=== PATIENT | female | born 1940 | race African-American/Black ===

== ENCOUNTER 2018-11-14 16:38 | Inpatient (IN) | payer MEDICARE, MEDICAID ==
[~2018-11-14] VITALS: Ht 170.2 cm; Wt 62.4 kg
[~2018-11-14 16:38] MED LIST: AMLO5TAB88 PO; ASPI-1159 PO; MEMA1CAP PO
[2018-11-14] MEDS ORDERED: SODIUM CHLORIDE 0.9% 1,000 ML IV ONE ×2 (19:25→21:45)
[2018-11-14] MEDS ORDERED: CLONIDINE 0.2MG TABLET PO ONE (19:30)
[2018-11-14 19:49] LABS: BASOPHILS % 1.3 % (0.0-2.0); EOSINOPHILS % 2.9 % (0.0-5.0); HEMATOCRIT. 34.1 % (36.0-48.0); HEMOGLOBIN. 11.1 g/dL (12.0-16.0); LYMPHOCYTES % 31.6 % (20.0-50.0); MEAN CORPUSCULAR HEMOGLOBIN 27.4 pg (28.0-32.0); MEAN CORPUSCULAR VOLUME 84.4 fL (81.0-99.0); MEAN PLATELET VOLUME 8.1 fl (7.4-10.4); MONOCYTES % 8.3 % (2.0-8.0); NEUTROPHILS % 55.9 % (40.0-76.0); PLATELET 221 x1000/uL (130-400); RED BLOOD CELL COUNT 4.04 mill/uL (4.2-5.4); RED CELL DISTRIBUTION WIDTH 13.9 % (11.6-14.6)
[2018-11-14 19:54] LABS: CHLORIDE 108 mEq/L (98-107)
[2018-11-14 19:56] LABS: INR 1.1; PROTHROMBIN TIME 11.3 sec (9.6-11.0)
[2018-11-14 20:02] LABS: CREATINE KINASE 117 IU/L (26-192)
[2018-11-14] MEDS ORDERED: HALOPERIDOL LACTATE 5MG/ML VIAL IM ONE (21:00)
[2018-11-14] MEDS ORDERED: HYDRALAZINE 20MG/ML VIAL IV NR (22:15)
[2018-11-14 22:42] LABS: CLARITY URINE CLEAR (CLEAR); COLOR URINE YELLOW (YELLOW); KETONES URINE NEGATIVE (NEGATIVE); LEUKOCYTE ESTERASE URINE NEGATIVE (NEGATIVE); NITRITE URINE NEGATIVE (NEGATIVE); OCCULT BLOOD URINE NEGATIVE (NEGATIVE); PROTEIN URINE NEGATIVE (NEGATIVE); SPECIFIC GRAVITY URINE 1.009 (1.005-1.030); UROBILINOGEN URINE 0.2 E.U./dL (0.2-1.0)
[2018-11-14] MEDS ORDERED: DOPAMINE 400MG/250ML PREMIX 250 ML IV ONE (22:45)
[2018-11-14] MEDS ORDERED: ATROPINE SULFATE 1MG/ML VIAL IV ONE (22:45)
[2018-11-14] MEDS ORDERED: ATROPINE SULFATE 1MG/10ML SYR IV NR (22:45)
[2018-11-15] VITALS (11 sets, daily range): BP systolic 109–165; BP diastolic 58–92
[2018-11-15] MEDS ORDERED: LINA290C PO (05:12)
[2018-11-15] MEDS ORDERED: MIRT7.5T11 PO (05:12)
[2018-11-15] MEDS ORDERED: GALA24CA PO (05:12)
[2018-11-15 08:45] LABS: CHLORIDE 115 mEq/L (98-107)
[2018-11-15] MEDS: MEMANTINE HCL 10MG TABLET PO SCH (08:53)
[2018-11-15] MEDS: ASPIRIN 81MG TABLET PO SCH (08:53)
[2018-11-15 08:56] LABS: EOSINOPHILS % 2.4 % (0.0-5.0); HEMATOCRIT. 27.4 % (36.0-48.0); LYMPHOCYTES % 20.7 % (20.0-50.0); MEAN CORPUSCULAR HEMOGLOBIN 27.8 pg (28.0-32.0); MEAN CORPUSCULAR VOLUME 84.6 fL (81.0-99.0); MEAN PLATELET VOLUME 8.4 fl (7.4-10.4); MONOCYTES % 8.5 % (2.0-8.0); NEUTROPHILS % 67.4 % (40.0-76.0); PLATELET 182 x1000/uL (130-400); RED BLOOD CELL COUNT 3.23 mill/uL (4.2-5.4); RED CELL DISTRIBUTION WIDTH 13.6 % (11.6-14.6)
[2018-11-15] MEDS: AMLODIPINE 5MG TABLET PO SCH (08:56)
[2018-11-15] MEDS ORDERED: ENOXAPARIN 40MG/0.4ML SYR SUBCUT SCH (09:00)
[2018-11-15] MEDS ORDERED: ENOXAPARIN 40MG/0.4ML SYR SUBCUT ONE (09:45)
[2018-11-15] MEDS: DEXT 5%/0.45% NACL KCL 40MEQ/L 1,000 ML IV SCH (12:14)
[2018-11-15] MEDS: MIRTAZAPINE 15MG TABLET PO SCH (21:18)
[2018-11-16] VITALS (12 sets, daily range): BP systolic 120–168; BP diastolic 67–111
[2018-11-16] MEDS: DEXT 5%/0.45% NACL KCL 40MEQ/L 1,000 ML IV SCH ×2 (00:05→12:35)
[2018-11-16 06:17] LABS: CHLORIDE 111 mEq/L (98-107)
[2018-11-16 07:10] LABS: BASOPHILS % 0.6 % (0.0-2.0); EOSINOPHILS % 0.8 % (0.0-5.0); LYMPHOCYTES % 11.4 % (20.0-50.0); MEAN CORPUSCULAR HEMOGLOBIN 27.6 pg (28.0-32.0); MEAN CORPUSCULAR VOLUME 84.3 fL (81.0-99.0); MEAN PLATELET VOLUME 8.6 fl (7.4-10.4); MONOCYTES % 7.4 % (2.0-8.0); NEUTROPHILS % 79.8 % (40.0-76.0); PLATELET 214 x1000/uL (130-400); RED BLOOD CELL COUNT 3.82 mill/uL (4.2-5.4); RED CELL DISTRIBUTION WIDTH 13.3 % (11.6-14.6)
[2018-11-16 07:14] LABS: HEMATOCRIT. 32.2 % (36.0-48.0); HEMOGLOBIN. 10.5 g/dL (12.0-16.0)
[2018-11-16] MEDS: DOCUSATE SODIUM 250MG CAPSULE PO SCH (08:44)
[2018-11-16] MEDS: ASPIRIN 81MG TABLET PO SCH (08:44)
[2018-11-16] MEDS: MEMANTINE HCL 10MG TABLET PO SCH (08:44)
[2018-11-16] MEDS: ENOXAPARIN 40MG/0.4ML SYR SUBCUT SCH (08:44)
[2018-11-16] MEDS: MULTIVITAMINS,THER W-MINERALS TABLET PO SCH (08:44)
[2018-11-16] MEDS: ATORVASTATIN CALCIUM 10MG TABLET PO SCH (08:44)
[2018-11-16] MEDS: AMLODIPINE 5MG TABLET PO SCH (08:45)
[2018-11-16] MEDS ORDERED: AMLODIPINE 5MG TABLET PO SCH (09:00)
[2018-11-16] MEDS: LINZESS 290 MCG PO SCH ×2 (11:00→12:34)
[2018-11-16] MEDS ORDERED: ACETAMINOPHEN 650MG/20.3ML UDC PO PRN (16:00)
[2018-11-16] MEDS: MIRTAZAPINE 15MG TABLET PO SCH (21:20)
[2018-11-17] VITALS (7 sets, daily range): BP systolic 108–140; BP diastolic 56–75
[2018-11-17] MEDS: DEXT 5%/0.45% NACL KCL 40MEQ/L 1,000 ML IV SCH (02:11)
[2018-11-17 06:46] LABS: BASOPHILS % 0.8 % (0.0-2.0); EOSINOPHILS % 2.8 % (0.0-5.0); HEMATOCRIT. 29.8 % (36.0-48.0); HEMOGLOBIN. 9.9 g/dL (12.0-16.0); LYMPHOCYTES % 11.4 % (20.0-50.0); MEAN CORPUSCULAR HEMOGLOBIN 28.1 pg (28.0-32.0); MEAN CORPUSCULAR VOLUME 84.7 fL (81.0-99.0); MEAN PLATELET VOLUME 8.5 fl (7.4-10.4); PLATELET 195 x1000/uL (130-400); RED BLOOD CELL COUNT 3.52 mill/uL (4.2-5.4); RED CELL DISTRIBUTION WIDTH 13.4 % (11.6-14.6)
[2018-11-17 06:58] LABS: CHLORIDE 112 mEq/L (98-107)
[2018-11-17] MEDS: MULTIVITAMINS,THER W-MINERALS TABLET PO SCH (08:09)
[2018-11-17] MEDS: ATORVASTATIN CALCIUM 10MG TABLET PO SCH (08:09)
[2018-11-17] MEDS: ASPIRIN 81MG TABLET PO SCH (08:09)
[2018-11-17] MEDS: MEMANTINE HCL 10MG TABLET PO SCH ×2 (08:09→08:17)
[2018-11-17] MEDS: LINZESS 290 MCG PO SCH (08:09)
[2018-11-17] MEDS: DOCUSATE SODIUM 250MG CAPSULE PO SCH (08:09)
[2018-11-17] MEDS: AMLODIPINE 5MG TABLET PO SCH (08:09)
[2018-11-17] MEDS: ENOXAPARIN 40MG/0.4ML SYR SUBCUT SCH (08:11)
== END 2018-11-17 14:16 | disposition home health service (06) | DRG 309 ==
LOC: ER 16:38 → 3WST 11-15 00:14 → EDBEDREQSVC 11-15 00:20 → EDBEDREQTM 11-15 00:20 → EDBEDREQDT 11-15 00:20 → EDBEDREQ 11-15 00:20 → ENRESERV 11-15 01:49
PROVIDERS: ADMIT Internal Medicine Geriatric Medicine; ATTEND Internal Medicine Geriatric Medicine
DX: I49.5 Sick sinus syndrome (principal); R64 Cachexia; F02.81 Dementia in other diseases classified elsewhere, unspecified severity, with behavioral disturbance; G30.9 Alzheimer's disease, unspecified; E87.6 Hypokalemia; R62.7 Adult failure to thrive; M24.50 Contracture, unspecified joint; I10 Essential (primary) hypertension; D64.9 Anemia, unspecified; E78.5 Hyperlipidemia, unspecified; M19.90 Unspecified osteoarthritis, unspecified site; S60.222A Contusion of left hand, initial encounter; W06.XXXA Fall from bed, initial encounter; I95.9 Hypotension, unspecified; Z68.21 Body mass index [BMI] 21.0-21.9, adult; Y93.89 Activity, other specified; Y92.89 Other specified places as the place of occurrence of the external cause; Y99.8 Other external cause status; Z79.899 Other long term (current) drug therapy; Z79.82 Long term (current) use of aspirin
CPT/HCPCS: 36415; 71045; 72170; 73130; 80048; 80061; 82550; 83880; 84443; 84484; 93005; 93306; 96361; 96365; 96372; 96375; 97162; 97530; 99291; J0461; J1265; J1630; J1650; J7030

== ENCOUNTER 2021-11-01 22:25 | Emergency (ER) | payer MEDICARE, MEDICAID ==
[~2021-11-01] VITALS: Ht 170.2 cm; Wt 60.0 kg
[~2021-11-01 22:25] MED LIST changes: -ASPI-1159 PO; +ASPI-1497 PO; +GALA24CA PO; +LINA290C PO; -MEMA1CAP PO; +MIRT7.5T11 PO
[2021-11-01] MEDS ORDERED: SODIUM CHLORIDE 0.9% 1,000 ML IV ONE (23:00)
[2021-11-01 23:34] LABS: BASOPHILS % 0.7 % (0.0-2.0); EOSINOPHILS % 4.9 % (0.0-5.0); HEMATOCRIT. 28.1 % (36.0-48.0); HEMOGLOBIN. 9.1 g/dL (12.0-16.0); LYMPHOCYTES % 21.7 % (20.0-50.0); MEAN CORPUSCULAR HEMOGLOBIN 27.5 pg (28.0-32.0); MEAN CORPUSCULAR VOLUME 84.9 fL (81.0-99.0); MEAN PLATELET VOLUME 8.9 fl (7.4-10.4); MONOCYTES % 7.3 % (2.0-8.0); NEUTROPHILS % 65.4 % (40.0-76.0); PLATELET 333 x1000/uL (130-400); RED BLOOD CELL COUNT 3.31 mill/uL (4.2-5.4)
[2021-11-01 23:41] LABS: CHLORIDE 110 mEq/L (98-107)
[2021-11-02 04:39] VITALS: BP 150/79
== END 2021-11-02 04:46 ==
LOC: ER 22:25
DX: E87.0 Hyperosmolality and hypernatremia (principal); M19.90 Unspecified osteoarthritis, unspecified site; F03.90 Unspecified dementia, unspecified severity, without behavioral disturbance, psychotic disturbance, mood disturbance, and anxiety; I12.9 Hypertensive chronic kidney disease with stage 1 through stage 4 chronic kidney disease, or unspecified chronic kidney disease; N18.9 Chronic kidney disease, unspecified; Z86.718 Personal history of other venous thrombosis and embolism; Z93.1 Gastrostomy status; Z79.82 Long term (current) use of aspirin; Z79.01 Long term (current) use of anticoagulants
CPT/HCPCS: 36415; 80053; 85025; 93005; 96360; 99284; J7030

== ENCOUNTER 2023-04-17 22:03 | Inpatient (IN) | payer MEDICARE, MEDICAID ==
[~2023-04-17] VITALS: Ht 167.6 cm; Wt 82.3 kg
[2023-04-17 22:09] VITALS: O2SAT 100
[2023-04-17] MEDS ORDERED: VANCOMYCIN 1G PREMIX 200 ML IV NR (23:15)
[2023-04-17] MEDS ORDERED: ONDANSETRON HCL 4MG/2ML INJ IV PRN (23:15)
[2023-04-17] MEDS ORDERED: PIPERACILLIN/TAZOBACTAM 3.375GM/50ML PREMIX IV NR (23:15)
[2023-04-17] MEDS ORDERED: IPRATROPIUM/ALBUTEROL 0.5-3(2.5)MG/3ML NEB HHN PRN (23:15)
[2023-04-17] MEDS ORDERED: PIPERACILLIN/TAZOBACTAM 3.375GM/50ML PREMIX IV SCH (23:15)
[2023-04-17] MEDS ORDERED: ONDANSETRON HCL 4MG/2ML INJ IV STA (23:24)
[2023-04-17] MEDS ORDERED: MORPHINE SULFATE 4 MG/ML CPJ (NOT FOR IM USE) IV STA (23:24)
[2023-04-17] MEDS ORDERED: SODIUM CHLORIDE 0.9% 1,000 ML IV ONE (23:30)
[2023-04-17] MEDS ORDERED: PIPERACILLIN/TAZ 3.375G PREMIX 50 ML IV ONE (23:30)
[2023-04-17] MEDS ORDERED: VANCOMYCIN 1G PREMIX 200 ML IV ONE (23:30)
[2023-04-18] MEDS ORDERED: SODIUM CHLORIDE 0.9% 1000ML BAG (SEPSIS BOLUS) IV ONE (01:45)
[2023-04-18 02:24] VITALS: BP 140/68; PULSE 131; PULSE 140; RESP 27; TEMP 99
[2023-04-18 08:02] VITALS: BP 139/69; PULSE 81; RESP 18; TEMP 97.6
[2023-04-18 08:10] LABS: HEMATOCRIT. 29.6 % (36.0-48.0); HEMOGLOBIN. 9.8 g/dL (12.0-16.0); MEAN CORPUSCULAR HEMOGLOBIN 27.2 pg (28.0-32.0); MEAN CORPUSCULAR HGB CONC 33.1 g/dL (31.0-37.0); MEAN CORPUSCULAR VOLUME 82.2 fL (81.0-99.0); MEAN PLATELET VOLUME 9.6 fl (7.4-10.4); PLATELET 294 x1000/uL (130-400); RED CELL DISTRIBUTION WIDTH 17.1 % (11.6-14.6); WHITE BLOOD COUNT 12.3 x1000/uL (4.5-11.0)
[2023-04-18 09:10] LABS: DIFFERENTIAL COMMENT 1
[2023-04-18 09:17] LABS: CHLORIDE 115 mEq/L (98-107); INDEX HEMOLYSI 1 (1-3); INDEX ICTERIC 1 (1-4); INDEX LIPEMIC 1 (1-3); POTASSIUM 4.6 mEq/L (3.5-5.1); SODIUM 148 mEq/L (136-145)
[2023-04-18 09:26] LABS: ALANINE AMINOTRANSFERASE 31 IU/L (13-61); ALBUMIN 1.9 g/dL (3.4-5.0); ASPARTATE AMINOTRANSFERASE 21 IU/L (15-37); BILIRUBIN TOTAL 0.4 mg/dL (0.1-1.0); CALCIUM 8.1 mg/dL (8.5-10.1); CARBON DIOXIDE 25 mEq/L (21-32); CREATININE 1.1 mg/dL (0.6-1.3); GLUCOSE 99 mg/dL (70-105); PROTEIN TOTAL 6.2 g/dL (6.0-8.3); UREA NITROGEN BLOOD 31 mg/dL (7-21)
[2023-04-18] MEDS: ENOXAPARIN 40MG/0.4ML SYR SUBCUT SCH (10:24)
[2023-04-18] MEDS: DEXT 5%/0.45% NACL 1000ML 1,000 ML IV SCH (11:12)
[2023-04-18] MEDS: PANTOPRAZOLE SODIUM 40 MG/VIAL IV SCH (11:12)
[2023-04-18] MEDS: PIPERACILLIN/TAZOBACTAM 3.375G in DEXT 5% WATER 50ML IV SCH ×3 (11:13→21:46)
[2023-04-18 11:44] LABS: ANISOCYTOSIS 1+; PLATELET ESTIMATE NORMAL
[2023-04-18 11:54] VITALS: BP 128/54; PULSE 125; RESP 18; TEMP 98.3
[2023-04-18 16:00] VITALS: BP 106/58; PULSE 116; RESP 20; TEMP 98.5
[2023-04-18 20:18] VITALS: BP 122/55; PULSE 119; RESP 20; TEMP 103.1
[2023-04-18] MEDS: VANCOMYCIN 750MG PREMIX 150 ML IV SCH (20:46)
[2023-04-18] MEDS: ACETAMINOPHEN 325MG TABLET GT PRN (20:46)
[2023-04-19] VITALS: BP 123/65; PULSE 113; RESP 18; TEMP 102.2
[2023-04-19 00:13] LABS: CLARITY URINE CLOUDY (CLEAR); COLOR URINE YELLOW (YELLOW); GLUCOSE URINE NEGATIVE (NEGATIVE); KETONES URINE NEGATIVE (NEGATIVE); LEUKOCYTE ESTERASE URINE 1+ (NEGATIVE); NITRITE URINE NEGATIVE (NEGATIVE); OCCULT BLOOD URINE 2+ (NEGATIVE); PROTEIN URINE 2+ (NEGATIVE); SPECIFIC GRAVITY URINE 1.014 (1.005-1.030); UROBILINOGEN URINE 0.2 E.U./dL (0.2-1.0)
[2023-04-19] MEDS ORDERED: ACETAMINOPHEN 650MG/20.3ML UDC PO NR (01:00)
[2023-04-19] MEDS ORDERED: ACETAMINOPHEN 650MG/20.3ML UDC GT NR (01:15)
[2023-04-19 02:27] LABS: RBC URINE 0-2 /hpf (0-2); SQUAMOUS EPITHELIAL CELL URINE NONE SEEN /lpf (RARE/1+)
[2023-04-19 02:29] LABS: BACTERIA URINE TRACE; YEAST URINE 1+
[2023-04-19 04:00] VITALS: BP 129/57; PULSE 101; RESP 18; TEMP 100
[2023-04-19] MEDS: DEXT 5%/0.45% NACL 1000ML 1,000 ML IV SCH (05:46)
[2023-04-19] MEDS: PIPERACILLIN/TAZOBACTAM 3.375G in DEXT 5% WATER 50ML IV SCH ×3 (05:46→21:14)
[2023-04-19 07:56] VITALS: BP 139/69; PULSE 120; RESP 26; TEMP 97.3
[2023-04-19] MEDS: PANTOPRAZOLE SODIUM 40 MG/VIAL IV SCH (10:07)
[2023-04-19] MEDS: ENOXAPARIN 40MG/0.4ML SYR SUBCUT SCH (10:08)
[2023-04-19] MEDS: DILTIAZEM HCL 30MG TABLET GT SCH ×3 (10:08→21:14)
[2023-04-19 11:50] VITALS: BP 131/58; PULSE 113; RESP 26; TEMP 98.3
[2023-04-19 15:24] VITALS: BP 137/67; PULSE 119; RESP 24; TEMP 98.1
[2023-04-19 20:00] VITALS: BP 132/61; PULSE 121; RESP 20; TEMP 103.6
[2023-04-19] MEDS: ACETAMINOPHEN 325MG TABLET GT PRN (21:14)
[2023-04-19] MEDS: VANCOMYCIN 750MG PREMIX 150 ML IV SCH (21:14)
[2023-04-20] VITALS: BP 120/62; PULSE 109; RESP 18; TEMP 102.2
[2023-04-20] MEDS: DEXT 5%/0.45% NACL 1000ML 1,000 ML IV SCH (02:08)
[2023-04-20] MEDS: ACETAMINOPHEN 325MG TABLET GT PRN (03:33)
[2023-04-20 04:00] VITALS: BP 95/50; PULSE 107; RESP 18; TEMP 102.7
[2023-04-20] MEDS: DILTIAZEM HCL 30MG TABLET GT SCH (05:35)
[2023-04-20] MEDS: PIPERACILLIN/TAZOBACTAM 3.375G in DEXT 5% WATER 50ML IV SCH (05:36)
[2023-04-20 06:08] LABS: POTASSIUM 3.5 mEq/L (3.5-5.1)
[2023-04-20 06:21] LABS: CALCIUM 7.7 mg/dL (8.5-10.1); CREATININE 1.6 mg/dL (0.6-1.3)
[2023-04-20 06:31] LABS: HEMATOCRIT. 27.6 % (36.0-48.0); HEMOGLOBIN. 8.6 g/dL (12.0-16.0); MEAN CORPUSCULAR HEMOGLOBIN 25.6 pg (28.0-32.0); MEAN CORPUSCULAR HGB CONC 31.3 g/dL (31.0-37.0); MEAN CORPUSCULAR VOLUME 81.8 fL (81.0-99.0); MEAN PLATELET VOLUME 9.8 fl (7.4-10.4); PLATELET 276 x1000/uL (130-400); RED BLOOD CELL COUNT 3.37 mill/uL (4.2-5.4); RED CELL DISTRIBUTION WIDTH 17.3 % (11.6-14.6); WHITE BLOOD COUNT 19.2 x1000/uL (4.5-11.0)
[2023-04-20 07:03] LABS: DIFFERENTIAL COMMENT 1
[2023-04-20 08:00] VITALS: BP 102/55; PULSE 110; RESP 16; TEMP 96.9
[2023-04-20] MEDS: ENOXAPARIN 40MG/0.4ML SYR SUBCUT SCH (09:00)
[2023-04-20] MEDS ORDERED: FAMOTIDINE 20MG/2ML VIAL IV SCH (09:00)
[2023-04-20] MEDS ORDERED: MORPHINE SULFATE 250 MG in DEXT 5% WATER 225 ML IV SCH (09:45)
[2023-04-20 10:29] LABS: BG BASE EXCESS -6.5 mmol/L (-2.0-2.0); BG CARBOXYHEMOGLOBIN 0.3 % (0.5-1.5); BG FRACTION INSPIRED OXYGEN 100; BG HCO3 ACT 23.4 mmol/L (22.0-26.0); BG METHEMOGLOBIN 0.1 % (0.0-1.5); BG OXYGEN SATURATION 84.9 % (92.0-98.5); BG OXYHEMOGLOBIN 84.6 % (94.0-97.0); BG PH 7.118 (7.350-7.450); BG SAMPLE SITE RIGHT RADIAL; BG TOTAL HEMOGLOBIN 9.9 g/dL (12.0-18.0); BG VENT MODE MASK - NRB
[2023-04-20 12:00] VITALS: BP 69/17; PULSE 93; RESP 18; TEMP 97.5
[2023-04-20 12:05] VITALS: BP 102/55; PULSE 110; RESP 16
[2023-04-20 13:45] LABS: PLATELET ESTIMATE NORMAL
[2023-04-20 13:46] LABS: ANISOCYTOSIS 1+
[2023-04-20] MEDS ORDERED: ACETAMINOPHEN 650MG/20.3ML UDC GT PRN (15:30)
[2023-04-20] MEDS ORDERED: NALOXONE HCL 0.4MG/ML VIAL IV PRN (15:45)
[2023-04-21] MEDS ORDERED: ENOXAPARIN 30MG/0.3ML SYR SUBCUT SCH (09:00)
== END 2023-04-20 14:56 | DRG 871 ==
LOC: ER 22:19 → 7WST 23:32 → EDBEDREQSVC 04-18 01:37 → 7WST 04-18 03:09
PROVIDERS: ADMIT Internal Medicine Nephrology; ATTEND Internal Medicine Nephrology
DX: A41.9 Sepsis, unspecified organism (principal); E43 Unspecified severe protein-calorie malnutrition; J69.0 Pneumonitis due to inhalation of food and vomit; J96.01 Acute respiratory failure with hypoxia; G92.8 Other toxic encephalopathy; E87.0 Hyperosmolality and hypernatremia; N17.9 Acute kidney failure, unspecified; I42.9 Cardiomyopathy, unspecified; Z66 Do not resuscitate; Z51.5 Encounter for palliative care; I10 Essential (primary) hypertension; L89.159 Pressure ulcer of sacral region, unspecified stage; R13.10 Dysphagia, unspecified; I25.10 Atherosclerotic heart disease of native coronary artery without angina pectoris; D63.8 Anemia in other chronic diseases classified elsewhere; R79.89 Other specified abnormal findings of blood chemistry; Z68.29 Body mass index [BMI] 29.0-29.9, adult; Z93.1 Gastrostomy status; Z74.01 Bed confinement status; Z86.718 Personal history of other venous thrombosis and embolism; Z87.01 Personal history of pneumonia (recurrent); E86.0 Dehydration; F03.C0 Unspecified dementia, severe, without behavioral disturbance, psychotic disturbance, mood disturbance, and anxiety; Z86.73 Personal history of transient ischemic attack (TIA), and cerebral infarction without residual deficits; I34.0 Nonrheumatic mitral (valve) insufficiency
CPT/HCPCS: 36415; 36600; 71045; 80048; 80053; 80202; 81003; 82375; 82805; 83605; 83735; 85025; 87106; 93005; 93970; 99285; C9113; J1650; J2270; J2405; J2543; J3370; J7030; J7060